=== PATIENT | male | born 1970 | race Two or more races ===

== ENCOUNTER 2024-03-30 20:57 | Emergency (ER) | payer SELFPAY ==
[2024-03-30 20:58] VITALS: BP 160/104
--- NOTE | 2024-03-30 21:35 | ED.GENMED ---
History of Present Illness
General
Chief Complaint: Head Injury
Source: patient
Exam Limitations: none
Time Seen by Provider: 03/30/24 21:11
History of Present Illness
History of Present Illness:
This is a 53 year old male that comes in with c/o left sided headache pain. States that yesterday he eat Mayonnaise and he felt a little dizzy. State that he thinks he is allergic to this. Then today at 11am he was playing video games and he was
mad about the game so he hit himself in the left temporal area with his hand. State that he started to feel dizzy, and he felt his words were slurred. States that he just did not feel normal. States that he could feel the blood going through his
body. States that he took Aleve and then a little later took 2 Ibuprofen around 1pm. States that he then drove from [place] to his sisters house. States that he has nausea, vomiting, and felt cold. Denies any fever, chest pain, diarrhea, urinary
burning.
Past History
Past History
ED Past Medical History: Asthma and Other (Concussion)
ED Past Surgical History: None
Social History
Tobacco: Non-smoker
Alcohol: Occasional
Personal: Single
Living: alone
Review of Systems
Review of Systems
All Other Systems: ROS reviewed and negative except as documented in HPI and ROS
Constitutional: Reports chills; Denies fever
EENT: Reports no symptoms
Respiratory: Reports no symptoms; Denies cough or trouble breathing
Cardiac: Reports no symptoms; Denies chest pain
ABD/GI: Reports nausea and vomiting; Denies abdominal pain or diarrhea
: Denies dysuria, frequency or urgency
Musculoskeletal: Reports no symptoms
Skin: Reports no symptoms
Neurological: Reports dizzy (Slight) and headache (left sided)
Psychiatric: Reports no symptoms
Phy Exam
General Physical Exam
General Presentation: well appearing and no apparent distress
General age: appears stated age
General Skin: warm and dry
General Habitus: normal
General Mental: alert
General Hydration: appears well hydrated
ENT Exam
ENT Exam: TM's normal, pharynx normal and neck supple
Eye Exam
Eye Exam: EOMI
Cardiovascular Exam
Cardiovascular Exam: regular rate/rhythm, no edema, no murmur and normal peripheral pulses
Pulmonary Exam
Pulmonary Exam: lungs clear, no respiratory distress, no rales, chest non tender, no crackles, no rhonchi, no wheezing and no cough
Gastrointestinal Exam
Gastrointestinal Exam: normal bowel sounds, non tender, soft, no organomegaly, no pulsatile mass and non distended
Musculoskeletal Exam
Musculoskeletal Exam: full ROM and no edema
Skin Exam
Skin Exam: normal color, warm/dry, no rash and no petechia
Psychiatric Exam
Psychiatric Exam: normal mood/affect
Course
Orders/Labs/Results
Orders:
Orders
03/30/24 21:35
CT Head W/o Iv Contrast Urgent
Comment:
Reason For Exam: lEFT SIDED HEADACHE
0.9% Sodium Chloride 1000 ml [Nss] 1,000 ml IV BOLUS
Acetaminophen [Tylenol] 1,000 mg PO NOW STA
Dexamethasone Sod Phosphate [Decadron] 20 mg IV NOW STA
Diphenhydramine [Benadryl] 25 mg IV NOW STA
Ketorolac [Toradol] 30 mg IV NOW STA
Prochlorperazine [Compazine] 5 mg IV NOW STA
Vital Signs
Initial and Last Documented VS:
Initial Vital Signs
Temp Pulse Resp BP Pulse Ox
98.3 F 102 18 160/104 98
03/30/24 20:58 03/30/24 20:58 03/30/24 20:58 03/30/24 20:58 03/30/24 20:58
Last Documented Vital Signs
Temp Pulse Resp BP Pulse Ox
98.3 F 98 18 132/86 99
03/30/24 20:58 03/30/24 22:10 03/30/24 22:10 03/30/24 22:10 03/30/24 22:10
MDM/Problems Addressed
Differential Diagnosis Includes:
Headache,
MDM/Problems Addressed:
This is a 53 year old male that comes in with c/o left side headache pain after he hit himself in the had when playing a video game. States that this was at 11am today and he drove from [place] after this to his sisters house. States that he felt
dizzy and was nauseated and vomiting. States that the light was also bothering him.
will get CT head and medicate as for a headache.
Back into see patient. States that he is feeling better. Explained that this was most likely a headache. CT scan is normal. Patient to go home and go to bed. Explained that the medication will stay in his system and he may awake feeling much
better. Patient can use Tylenol and Ibuprofen as needed. Return with any concerns.
Chronic conditions affecting care:
Concussion
Acute Exacerbation and/or Progression of Chronic Illness:
Concussion
*Radiology
Radiology exam reviewed: radiology read reviewed (CT head-NO evidence of acute intracranial abnormality. )
*Pulse Oximetry
Patient hypoxic: no
*EKG
Interpreted by ED Provider?: NA
Rate: EKG- N/A
*[employer] Interpretation
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
*Critical Care Note
Total Time (30-74mins, 75-104mins- exclusive of procedures): Not Applicable
ED Attending Note
-
Portions of this chart may have been created with voice recognition software.� Occasional wrong word or��sound alike� substitutions may have occurred due to the inherent limitations of voice recognition software.
Discharge Plan
Departure
Patient Disposition: Home (Routine Discharge)
Date of Disposition: 03/30/24
Time of Disposition: 22:52
Patient with high blood pressure during this ER visit?: Yes
Condition: Good
Covid-19: Not Applicable
Discharge Problem:
Headache
Instructions: Headache, Adult ED, BLOOD PRESSURE
Referrals:
NONE,* [Family Provider] -
Activity Restrictions/Additional Instructions:
As discussed, your CT of the head is normal. This is most likely a complicated Migraine. Please increase your water intake to 8-8oz glasses daily. Follow up with the family doctor for recheck. You may use Tylenol 1000mg every 6 hour for pain and
Ibuprofen 600mg every 6 hours for pain. IF YOU HAVE ANY OTHER CONCERNS PLEASE RETURN TO THE EMERGENCY ROOM.
Interventions
Interventions:
*Risk Screen - Suicide Last Done: 03/30/24 20:58
*General Assessment Last Done: 03/30/24 21:41
*Neglect/Abuse Screening Last Done: 03/30/24 21:41
ED- Fall Risk Assessment Last Done: 03/30/24 22:07
*ED COVID-19 Vaccine History Last Done: 03/30/24 21:41
ED- Neurological Assessment Last Done: 03/30/24 22:06
ED-Skin Assessment Last Done: 03/30/24 22:06
Discharge Date and Time
Print Language: NEPALI
[2024-03-30 21:41] VITALS: BMI 32.5
[2024-03-30] MEDS: NSS 1000 IV (21:50)
[2024-03-30] MEDS: DECADRON 20 MG IV (21:51)
[2024-03-30] MEDS: BENADRYL 25 MG IV (21:52)
[2024-03-30] MEDS: COMPAZINE 5 MG IV (21:54)
[2024-03-30] MEDS: TORADOL 30 MG IV (21:55)
[2024-03-30] MEDS: TYLENOL 1000 MG PO (21:57)
[2024-03-30 22:10] VITALS: BP 132/86
[2024-03-30 23:00] VITALS: BP 118/64
== END 2024-03-30 23:00 | disposition home or self-care (01) ==
LOC: EMR 20:57
PROVIDERS: EMERGENCY PHYSICIAN Emergency Medicine
DX: R51.9 Headache, unspecified (principal); R42 Dizziness and giddiness; R11.2 Nausea with vomiting, unspecified; R47.81 Slurred speech; R68.83 Chills (without fever); X58.XXXA Exposure to other specified factors, initial encounter; R03.0 Elevated blood-pressure reading, without diagnosis of hypertension; J45.909 Unspecified asthma, uncomplicated; Z87.820 Personal history of traumatic brain injury
CPT/HCPCS: 99284; 96374; 96375 ×3; 96361; 70450